=== PATIENT | female | born 1995 | race African-American/Black ===

== ENCOUNTER 2017-12-14 07:24 | Emergency (ER) | payer OTHER ==
[~2017-12-14] VITALS: Ht 152.4 cm; Wt 43.1 kg
[2017-12-14] MEDS ORDERED: ZPAK PO (08:52)
[2017-12-14] MEDS ORDERED: GUAIFEN-CODEINE10 ML PO (09:01)
== END 2017-12-14 09:12 | disposition home or self-care (01) ==
LOC: ER 07:24
DX: J18.9 Pneumonia, unspecified organism (principal)